=== PATIENT | female | born 1985 | race African-American/Black ===

== ENCOUNTER 2018-08-24 19:54 | Emergency (ER) | payer SELFPAY ==
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
[2018-08-24 20:18] VITALS: PULSE 79; RESP 16; TEMP 36.7; O2SAT 100
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
[2018-08-24 23:42] VITALS: BP 122/82; PULSE 69; RESP 18; O2SAT 100
[2018-08-24] MEDS: Lidocaine 5% Patch 1 PATCH TP (23:45)
== END 2018-08-24 23:54 | disposition home or self-care (01) ==
PROVIDERS: Emergency Provider Student in an Organized Health Care Education/Training Program
DX: R20.2 Paresthesia of skin (principal); S06.0X9A Concussion with loss of consciousness of unspecified duration, initial encounter; M43.6 Torticollis; M54.6 Pain in thoracic spine; V49.40XA Driver injured in collision with unspecified motor vehicles in traffic accident, initial encounter
CPT/HCPCS: 99284; 70450; 72125

== ENCOUNTER → 2025-01-29 00:34 | Outpatient (CLI) | payer MEDICAID, SELFPAY ==
--- NOTE | 2025-01-29 | DI.US_ITS ---
Exam(s) US CAROTID EXAM: US CAROTID CLINICAL HISTORY: G54.2, CERVICAL ROOT DISORDERS. TECHNIQUE: Ultrasound carotids performed using grayscale, color-flow, and spectral Doppler imaging. COMPARISON: No exams were available for comparison FINDINGS: RIGHT CAROTID ARTERY: Plaque: No visible plaque Velocity elevation: None. LEFT CAROTID ARTERY: Plaque: No visible plaque Velocity elevation: None. VERTEBRAL ARTERIES: Antegrade flow. Measurements: R Bulb: 90.3cm/s PS / 25.8cm/s ED R CCA: 108.3cm/s PS / 30.6cm/s ED R ECA: 90.6cm/s PS / 13.7cm/s ED R ICA Prox: 83.7cm/s PS / 35.2cm/s ED R ICA Mid: 85.3cm/s PS / 33.9cm/s ED R ICA Distal: 61.1cm/s PS /25.7cm/s ED R Vert: 50.9cm/s PS / 15.3cm/s ED R SVR: 0.8 R DVR: 0.8 L Bulb: 66.2cm/s PS / 21.4cm/s ED L CCA: 81.2cm/s PS / 27.7cm/s ED L ECA: 80.3cm/s PS / 17.9cm/s ED L ICA Prox: 90.4cm/s PS / 35.9cm/s ED L ICA Mid: 96.7cm/s PS / 38.3cm/s ED L ICA Distal: 91.2cm/s PS / 34.7cm/s ED L Vert: 45.2cm/s PS / 14.6cm/s ED L SVR: 1.2 L DVR: 1.4 IMPRESSION: Normal carotid ultrasound Criteria for Carotid Stenosis: Normal: ICA PSV <125 cm/s no plaque or intimal thickening is visible. <50% stenosis: ICA PSV <125 cm/s and plaque or intimal thickening is visible. 50-69% stenosis: ICA PSV is 125-250 cm/s and plaque is visible. >70% stenosis to near occlusion: ICA PSV >250 cm/s with visible plaque and luminal narrowing. DATA REPOSITORY:
== END ==
PROVIDERS: PCP Nurse Practitioner Family; Visit Provider Nurse Practitioner Family
DX: G54.2 Cervical root disorders, not elsewhere classified (principal)
CPT/HCPCS: 93880